=== PATIENT | female | born 2000 | race Two or more races ===

== ENCOUNTER 2021-01-27 16:56 | Emergency (ER) | payer OTHER, SELFPAY ==
--- NOTE | ~2021-01-27 | US_ITS ---
EXAMINATION: US PELVIC AND TRANSVAGINAL US PELVIC OVARIAN DOPPLER CLINICAL INFORMATION: Right lower quadrant pelvic pain. LMP 01/16/2021. COMPARISON: None TECHNIQUE: Ultrasound of the pelvis is performed using both transabdominal and transvaginal transducers along with Doppler. Transvaginal imaging is performed due to inadequate visualization transabdominally. FINDINGS: UTERUS: The uterus is anteverted and measures 7.5 x 3.4 x 4.8 cm. The double wall endometrial thickness is 12 mm. The uterus is smooth in contour and has normal myometrial echogenicity. No visible fibroid. ADNEXA: Both ovaries are visualized. There is normal color flow to the right and left ovary. There is no ovarian torsion. There is sinw-gn-auizteia pelvic free fluid. Right ovary measures 3.4 x 2.8 x 3.2 cm for a volume of 16 mL. There are complex right ovarian cysts measuring 1.9 x 1.4 x 1.1 cm and 1.6 x 1.0 x 1.8 cm. Left ovary measures 2.2 x 2.7 x 2.8 cm for a volume of 8.7 mL. US/US pelvic and transvaginal IMPRESSION: 1. Complex right ovarian cysts measuring 1.9 and 1.8 cm. 2. Rbrz-mr-bltbjxde pelvic free fluid.
--- NOTE | ~2021-01-27 | US_ITS ---
EXAMINATION: US PELVIC AND TRANSVAGINAL US PELVIC OVARIAN DOPPLER CLINICAL INFORMATION: Right lower quadrant pelvic pain. LMP 01/16/2021. COMPARISON: None TECHNIQUE: Ultrasound of the pelvis is performed using both transabdominal and transvaginal transducers along with Doppler. Transvaginal imaging is performed due to inadequate visualization transabdominally. FINDINGS: UTERUS: The uterus is anteverted and measures 7.5 x 3.4 x 4.8 cm. The double wall endometrial thickness is 12 mm. The uterus is smooth in contour and has normal myometrial echogenicity. No visible fibroid. ADNEXA: Both ovaries are visualized. There is normal color flow to the right and left ovary. There is no ovarian torsion. There is waro-ny-ppkcmgxz pelvic free fluid. Right ovary measures 3.4 x 2.8 x 3.2 cm for a volume of 16 mL. There are complex right ovarian cysts measuring 1.9 x 1.4 x 1.1 cm and 1.6 x 1.0 x 1.8 cm. Left ovary measures 2.2 x 2.7 x 2.8 cm for a volume of 8.7 mL. US/US pelvic ovarian doppler IMPRESSION: 1. Complex right ovarian cysts measuring 1.9 and 1.8 cm. 2. Ixvj-we-tkmjsmwx pelvic free fluid.
--- NOTE | ~2021-01-27 | CT_ITS ---
EXAMINATION: CT ABDOMEN AND PELVIS WITH CONTRAST CLINICAL INFORMATION: Right lower quadrant pain COMPARISON: Pelvic ultrasound from earlier today TECHNIQUE: Multidetector volumetric images were obtained from the superior aspect of the liver through the pubic symphysis following administration 85 mL of Omnipaque 350 intravenous contrast. Sagittal and coronal reformatted images were obtained on the technologist's workstation. Oral contrast: No This CT examination was performed using dose optimization techniques as appropriate, variously including the following: *Automated exposure control *Adjustment of mA and/or kV according to patient size (this includes techniques or standardized protocols for targeted exams where dose is matched to indication/reason for exam; i.e. extremities or head) *Use of iterative reconstruction technique DLP: 317 mGy-cm FINDINGS: LUNG BASES: The visualized lung bases are unremarkable. LIVER, GALLBLADDER, AND BILIARY TREE: The liver is normal in size, shape, and attenuation. No focal hepatic lesion or biliary ductal dilatation is present. The gallbladder is unremarkable with no evidence of radiopaque gallstones, gallbladder wall thickening, or obvious pericholecystic inflammatory changes. PANCREAS: Unremarkable. SPLEEN: Unremarkable. ADRENAL GLANDS: Unremarkable. KIDNEYS AND URETERS: Bilateral nephrograms are symmetric. No hydronephrosis or obstructing calculus identified. BLADDER: Unremarkable. GASTROINTESTINAL TRACT: No evidence of bowel obstruction or significant wall thickening. The appendix appears nondilated. No free air is seen. ABDOMINAL WALL: No significant hernia is appreciated. LYMPH NODES: Normal. VASCULAR: Unremarkable. PELVIC VISCERA: Small right ovarian cysts are better demonstrated on recent ultrasound. Small amount of pelvic free fluid is noted. OSSEOUS STRUCTURES: Unremarkable. CT/CT abdomen pelvis w con IMPRESSION: Small amount of nonspecific pelvic free fluid again noted. No additional acute findings identified. Normal-appearing appendix. Fleischner guidelines were followed.
[2021-01-27 17:09] VITALS: BP 111/55; PULSE 72; RESP 18; TEMP 36.8; O2SAT 100; BMI 20.7
--- NOTE | 2021-01-27 19:37 | PC.NURSE ---
Pt's labs obtained, sent for processing. When pt called into triage for labs, pt was eating a donut. Pt does report persistent RLQ pain.
[2021-01-27 19:46] LABS: MANUAL DIFF FLAG NO
[2021-01-27 19:47] LABS: Basophils Percent Auto 0.3 % (0-2); Eosinophils Absolute Auto 0.1 X10*3/uL (0.0-0.4); Eosinophils Percent Auto 1.3 % (0-4); Hematocrit 38.6 % (37.0-47.0); Hemoglobin 12.7 g/dl (12.0-16.0); Imm Gran Abs Auto 0.01 X10*3/uL (0.00-0.03); Imm Gran Pct Auto 0.1 % (0.0-0.4); Lymphocytes Percent Auto 25.1 % (20-40); Mean Corpuscular HGB Conc 32.9 g/dl (31.0-35.0); Mean Corpuscular Hemoglobin 30.5 pg (27.0-33.0); Mean Corpuscular Volume 92.8 fL (80.0-98.0); Monocytes Absolute Auto 0.4 X10*3/uL (0.1-1.2); Monocytes Percent Auto 5.3 % (2-11); Neutrophils Absolute Auto 5.4 x10*3/uL (2.0-8.3); Neutrophils Percent Auto 67.9 % (45-73); Platelet Count 317 X10*3/uL (160-400); Red Blood Count 4.16 X10*6/uL (4.20-5.50); Red Cell Distribution Width 11.9 % (11.0-16.0); White Blood Count 7.9 X10*3/uL (4.8-10.8)
[2021-01-27 20:03] LABS: Appearance Urine CLEAR; Color Urine YELLOW; Glucose Urine UA NEG (NEG); Leukocyte Esterase Urine NEG (NEG); Nitrite Urine NEG (NEG); PH 6.5 (5.0-8.0); Specific Gravity - Urine 1.025 (1.005-1.025); Urine Blood NEG (NEG); Urine Ketones NEG (NEG); Urine Protein NEG (NEG-TRACE)
[2021-01-27 20:03] LABS: Alanine Aminotransferase 9 U/L (0-31); Albumin Level 4.2 g/dL (3.5-5.0); Alkaline Phosphatase 63 U/L (39-117); Anion Gap 12 (12-20); Aspartate Amino Transferase 16 U/L (5-31); Bilirubin Total 0.4 mg/dL (0.0-1.0); Blood Urea Nitrogen 15 mg/dL (9-16); Calcium 9.9 mg/dL (8.4-10.2); Carbon Dioxide 24 mmol/L (22-29); Chloride 106 mmol/L (96-108); Creatinine Clr Calc Pharmacy 99.1; Estimated Glomerular Filt Rate > 60; Glucose Random 81 mg/dL (60-115); Potassium 4.1 mmol/L (3.3-5.1); Sodium 138 mmol/L (135-145); Total Protein 7.4 g/dL (6.5-8.0)
[2021-01-27 20:05] VITALS: BP 116/57; PULSE 66; RESP 16; TEMP 37.2; O2SAT 100
[2021-01-27 20:05] LABS: UPreg QC Valid YES; Urine Pregnancy NEGATIVE (NEGATIVE)
--- NOTE | 2021-01-27 22:07 | ED_ITS ---
HPI - Abdominal Pain General Chief Complaint: Abdominal Pain Stated Complaint: lower rt side abd pain Time Seen by Provider: 01/27/21 21:26 Source: patient and family Mode of arrival: ambulatory History of Present Illness HPI narrative: 20-year-old female presents with right lower quadrant pain/pelvic pain since last night with associated nausea but otherwise denies any fever, chills, diarrhea, urinary pain/burning/frequency. Patient states that she is sexually active but last encounter was approximately 2 months ago and she denies any vaginal discharge or burning on urination. Related Data Allergies Allergy/AdvReac Type Severity Reaction Status Date / Time No Known Allergies Allergy Unverified 01/27/21 21:26 Review of Systems Review of Systems Pertinent positives and negatives as stated in HPI 10 point review of systems is otherwise negative. Physical Exam Vital Signs: Vital Signs: Last Vital Signs Temp 99.0 F 01/27/21 23:50 Pulse 67 01/27/21 23:50 Resp 16 01/27/21 23:50 BP 129/75 01/27/21 23:50 Pulse Ox 100 01/27/21 20:05 BMI result Body Mass Index 20.7 VITAL SIGNS: Reviewed. GENERAL: Well developed, well nourished, in no acute distress. HEAD: Normocephalic/atraumatic EYES: PERRLA, EOMI LUNGS: Normal breath sounds. No adventitious sounds or accessory muscle use. SpO2<100> CARDIOVASCULAR: Regular rate and rhythm without noted murmurs ABDOMEN: Soft, mild tenderness on palpation across right lower quadrant and suprapubic without rebound, non-distended with bowel sounds. NEUROLOGIC: Alert and oriented x 4. Strength and sensation to light touch were grossly intact x 4. Course Course Course Narrative: 20-year-old female with history and clinical presentation suggestive of possible ectopic, appendicitis, UTI, ovarian torsion, ovarian cyst. Review of all investigations although laboratory workup is without acute findings ultrasound with Dopplers negative for ovarian torsion but noted mild to moderate pelvic free fluid and will follow up with the CT scan. Review of all investigations in its entirety negative for evidence of acute appendicitis, PID, ectopic and urinalysis is negative. There is a noted complex ovarian cyst on the right side with mild amount of pelvic free fluid. All results were discussed with patient at bedside and she was instructed to follow-up with her primary care provider intake [id number] analgesics for pain. MDM - Abdominal Pain Lab Data Result diagrams: 01/27/21 19:36 01/27/21 19:36 Labs: Lab Results 01/27/21 01/27/21 01/27/21 Range/Units 19:36 19:36 19:55 WBC 7.9 (4.8-10.8) X10*3/uL RBC 4.16 L (4.20-5.50) X10*6/uL Hgb 12.7 (12.0-16.0) g/dl Hct 38.6 (37.0-47.0) % MCV 92.8 (80.0-98.0) fL MCH 30.5 (27.0-33.0) pg MCHC 32.9 (31.0-35.0) g/dl RDW 11.9 (11.0-16.0) % Plt Count 317 (160-400) X10*3/uL MPV 9.0 L (9.4-12.3) fL Immature Gran % (Auto) 0.1 (0.0-0.4) % Neut % (Auto) 67.9 (45-73) % Lymph % (Auto) 25.1 (20-40) % [place] % (Auto) 5.3 (2-11) % Eos % (Auto) 1.3 (0-4) % Baso % (Auto) 0.3 (0-2) % Lymph # (Auto) 2.0 (1.2-4.9) X10*3/uL [place] # (Auto) 0.4 (0.1-1.2) X10*3/uL Eos # (Auto) 0.1 (0.0-0.4) X10*3/uL Baso # (Auto) 0.0 (0.0-0.2) X10*3/uL Abs Immat Gran (auto) 0.01 (0.00-0.03) X10*3/uL Absolute Neuts (auto) 5.4 (2.0-8.3) x10*3/uL Absolute Nucleated RBC 0.000 (0.0-0.012) X10*3/uL Nucleated RBC % (auto) 0.0 (0.0-0.2) /100WBC Sodium 138 (135-145) mmol/L Potassium 4.1 (3.3-5.1) mmol/L Chloride 106 (96-108) mmol/L Carbon Dioxide 24 (22-29) mmol/L Anion Gap 12 (12-20) BUN 15 (9-16) mg/dL Creatinine 0.81 (0.5-1.4) mg/dL Estim Creat Clear Calc 99.1 Estimated GFR > 60 Random Glucose 81 (60-115) mg/dL Calcium 9.9 (8.4-10.2) mg/dL Total Bilirubin 0.4 (0.0-1.0) mg/dL AST 16 (5-31) U/L ALT 9 (0-31) U/L Alkaline Phosphatase 63 (39-117) U/L Total Protein 7.4 (6.5-8.0) g/dL Albumin 4.2 (3.5-5.0) g/dL Urine Color YELLOW Urine Appearance CLEAR Urine pH 6.5 (5.0-8.0) Ur Specific [place] 1.025 (1.005-1.025) Urine Protein NEG (NEG-TRACE) MG/DL Urine Glucose (UA) NEG (NEG) MG/DL Urine Ketones NEG (NEG) MG/DL Urine Blood NEG (NEG) Urine Nitrite NEG (NEG) Ur Leukocyte Esterase NEG (NEG) Urine Test (NEGATIVE) 01/27/21 Range/Units 19:55 WBC (4.8-10.8) X10*3/uL RBC (4.20-5.50) X10*6/uL Hgb (12.0-16.0) g/dl Hct (37.0-47.0) % MCV (80.0-98.0) fL MCH (27.0-33.0) pg MCHC (31.0-35.0) g/dl RDW (11.0-16.0) % Plt Count (160-400) X10*3/uL MPV (9.4-12.3) fL Immature Gran % (Auto) (0.0-0.4) % Neut % (Auto) (45-73) % Lymph % (Auto) (20-40) % [place] % (Auto) (2-11) % Eos % (Auto) (0-4) % Baso % (Auto) (0-2) % Lymph # (Auto) (1.2-4.9) X10*3/uL [place] # (Auto) (0.1-1.2) X10*3/uL Eos # (Auto) (0.0-0.4) X10*3/uL Baso # (Auto) (0.0-0.2) X10*3/uL Abs Immat Gran (auto) (0.00-0.03) X10*3/uL Absolute Neuts (auto) (2.0-8.3) x10*3/uL Absolute Nucleated RBC (0.0-0.012) X10*3/uL Nucleated RBC % (auto) (0.0-0.2) /100WBC Sodium (135-145) mmol/L Potassium (3.3-5.1) mmol/L Chloride (96-108) mmol/L Carbon Dioxide (22-29) mmol/L Anion Gap (12-20) BUN (9-16) mg/dL Creatinine (0.5-1.4) mg/dL Estim Creat Clear Calc Estimated GFR Random Glucose (60-115) mg/dL Calcium (8.4-10.2) mg/dL Total Bilirubin (0.0-1.0) mg/dL AST (5-31) U/L ALT (0-31) U/L Alkaline Phosphatase (39-117) U/L Total Protein (6.5-8.0) g/dL Albumin (3.5-5.0) g/dL Urine Color Urine Appearance Urine pH (5.0-8.0) Ur Specific [place] (1.005-1.025) Urine Protein (NEG-TRACE) MG/DL Urine Glucose (UA) (NEG) MG/DL Urine Ketones (NEG) MG/DL Urine Blood (NEG) Urine Nitrite (NEG) Ur Leukocyte Esterase (NEG) Urine Test NEGATIVE (NEGATIVE) Discharge Plan Discharge Clinical Impression: Abdominal discomfort, Free fluid in pelvis Patient Disposition: Home, Self-Care Instructions: Abdominal Pain (ED) Additional Instructions: 1. Recommend taking [id number] Tylenol/ibuprofen as needed for abdominal discomfort. 2. Follow-up with your primary care provider for re-evaluation in the next 2-3 days. Return to the ER for worsening symptoms. [facility] Past Medical History Source: nursing notes reviewed Medical History No known health problems Social History Social History Advance Directives: No Advance Directives Information Provided: No
[2021-01-27] MEDS: iohexoL 350 MG/ML 100 ML INFUS..BTL 85 ML IV (23:46)
[2021-01-27 23:50] VITALS: BP 129/75; PULSE 67; RESP 16; TEMP 37.2
[2021-01-28 00:31] LABS: COVID-19 Test Negative (Negative); IDNOW Serial# 9DD0AD1C
== END 2021-01-28 00:28 | disposition home or self-care (01) ==
PROVIDERS: Emergency Provider Student in an Organized Health Care Education/Training Program
DX: R10.9 Unspecified abdominal pain (principal); R18.8 Other ascites; Z20.822 Contact with and (suspected) exposure to COVID-19
CPT/HCPCS: 36415; 74177; 76830; 76856; 80053; 81003; 81025; 85025; 87635; 93975; 99284; Q9967

== ENCOUNTER 2021-08-24 12:03 | Emergency (ER) | payer OTHER, SELFPAY ==
--- NOTE | ~2021-08-24 | US_ITS ---
EXAMINATION: US PELVIS CLINICAL INFORMATION: Left adnexal pain and bleeding COMPARISON: None TECHNIQUE: Ultrasound of the pelvis is performed using both transabdominal and transvaginal transducers along with Doppler. Transvaginal imaging is performed due to inadequate visualization transabdominally. FINDINGS: Uterus: The uterus is anteverted and measures 7.4 cm in length and 3.3 mL in AP and 4.9 cm in dimension. The double wall endometrial thickness is 7 mm. The uterus is smooth in contour and has normal myometrial echogenicity. No visible fibroid. Adnexa: Both ovaries are visualized. There is normal color flow to the adnexa. There is no ovarian torsion. There is no pelvic ascites or fluid collection. Right ovary measures 2.9 x 1.5 x 2.9 cm and volume 6.6 mL. No focal lesion seen. Left ovary measures 3.5 x 2.4 x 2.7 cm and volume 11.9 mL. A small corpus luteal cyst is seen measuring 1.8 x 1.3 x 1.3 cm. cm. US/US pelvic ovarian doppler IMPRESSION: Unremarkable uterus and cervix. Small corpus luteal cyst left ovary.
--- NOTE | ~2021-08-24 | US_ITS ---
EXAMINATION: US PELVIS CLINICAL INFORMATION: Left adnexal pain and bleeding COMPARISON: None TECHNIQUE: Ultrasound of the pelvis is performed using both transabdominal and transvaginal transducers along with Doppler. Transvaginal imaging is performed due to inadequate visualization transabdominally. FINDINGS: Uterus: The uterus is anteverted and measures 7.4 cm in length and 3.3 mL in AP and 4.9 cm in dimension. The double wall endometrial thickness is 7 mm. The uterus is smooth in contour and has normal myometrial echogenicity. No visible fibroid. Adnexa: Both ovaries are visualized. There is normal color flow to the adnexa. There is no ovarian torsion. There is no pelvic ascites or fluid collection. Right ovary measures 2.9 x 1.5 x 2.9 cm and volume 6.6 mL. No focal lesion seen. Left ovary measures 3.5 x 2.4 x 2.7 cm and volume 11.9 mL. A small corpus luteal cyst is seen measuring 1.8 x 1.3 x 1.3 cm. cm. US/US pelvic and transvaginal IMPRESSION: Unremarkable uterus and cervix. Small corpus luteal cyst left ovary.
[2021-08-24 12:09] VITALS: BP 115/90; PULSE 76; RESP 16; TEMP 36.8; O2SAT 99; BMI 19.1
[2021-08-24 13:02] LABS: Appearance Urine CLEAR; Color Urine YELLOW; Glucose Urine UA NEG (NEG); Leukocyte Esterase Urine NEG (NEG); Nitrite Urine NEG (NEG); Specific Gravity - Urine 1.025 (1.005-1.025); UACC Culture Trigger NO; Urine Blood 2+ (NEG); Urine Ketones NEG (NEG); Urine Protein NEG (NEG-TRACE)
[2021-08-24 13:06] LABS: UPreg QC Valid YES
[2021-08-24 13:07] LABS: Urine Pregnancy NEGATIVE (NEGATIVE)
[2021-08-24 13:10] LABS: Bacteria Urine 3+ /LPF; Squamous Epithelial Cell Urine 2+ /LPF
--- NOTE | 2021-08-24 13:36 | ED_ITS ---
HPI - Female Genitourinary General Chief complaint: Urogenital-Female Stated complaint: lower abdominal and urination pain Time Seen by Provider: 08/24/21 13:06 Source: patient Mode of arrival: ambulatory Limitations: no limitations History of Present Illness HPI Narrative: 21-year-old female here for 5 days of left-sided pelvic pain and dysuria. Patient has had blood on toilet paper when she wipes. She is sexually active, last menstrual period was early last month. Patient states there is pain when she walks. This is similar to the abdominal pain she had in January 2021 when she had ovarian cyst on her right side. The pain is stabbing and constant she states that as a 08/25. Denies vaginal discharge, denies back pain, denies fevers, denies nausea, vomiting, diarrhea. Related Data Previous Rx's Medication Instructions Recorded doxycycline hyclate 100 mg tablet 100 mg PO BID 7 days #14 tabs 08/24/21 phenazopyridine 200 mg tablet 200 mg PO TID 6 doses #6 tabs 08/24/21 (Pyridium) Allergies Allergy/AdvReac Type Severity Reaction Status Date / Time No Known Allergies Allergy Unverified 01/27/21 21:26 Review of Systems Constitutional: Constitutional: Denies body ache(s), Denies chills, Denies fatigue, Denies fever(s), Denies headache(s), Denies malaise and Denies weakness Eyes: Eyes: Denies diplopia ENT: Denies vertigo, Denies dizziness, Denies otalgia, Denies headache(s), Denies mouth pain, Denies post nasal drip, Denies sinus pain, Denies sinus pressure, Denies sore throat and Denies throat swelling Cardiovascular: Cardiovascular: Denies chest pain, Denies syncope, Denies leg edema, Denies lightheadedness, Denies Loss of Consciousness, Denies palpitations and Denies dyspnea Respiratory: Respiratory: Denies chest congestion, Denies cough and Denies dyspnea Gastrointestinal: Gastrointestinal: Denies abdominal pain, Denies hematoche kadeem, Denies constipation, Denies diarrhea, Denies nausea and Denies vomiting Genitourinary: Genitourinary: Denies genital pruritis, Denies genital lesions, Reports dysuria, Reports pelvic pain, Denies flank pain, Denies urinary incontinence, Denies urinary hesitancy, Denies urinary urgency, Denies vaginal discharge, Denies vaginal odor and Denies vaginal pruritus Musculoskeletal: Musculoskeletal: Reports no additional musculoskeletal complaints and Denies back pain Integumentary/Breasts: Skin/Breast: Denies rash Neurologic: Denies confusion, Denies vertigo, Denies dizziness, Denies syncope, Denies headache(s) and Denies weakness Psychiatric: Psychiatric: Denies anxiety, Denies confusion and Denies depression Endocrine: Endocrine: Denies fatigue and Denies palpitations Allergic/Immunologic: Allergic/Immunologic: Denies throat swelling PMFSH Past Medical History Medical History No known health problems Social History Social History Advance Directives: No Advance Directives Information Provided: No Physical Exam Vital Signs: Vital Signs: Last Vital Signs Temp 98.2 F 08/24/21 12:09 Pulse 76 08/24/21 12:09 Resp 16 08/24/21 12:09 BP 115/90 H 08/24/21 12:09 Pulse Ox 99 08/24/21 12:09 O2 Del Method 08/24/21 12:09 BMI result Body Mass Index 19.1 Const: General: No confusion Nutritional Appearance: well nourished Orientation/consciousness: No confusion Limitations: no limitations Eyes: Conjunctivae: conjunctivae normal Pupils: Equal, round and reactive pupils present EOM: EOMs intact bilaterally Neck: Neck: Yes full ROM, Yes no lymphadenopathy and Yes supple Resp: Effort & Inspection: normal respiratory effort and able to speak in complete sentences Auscultation: clear to auscultation bilaterally, no crackles, no rales, no rhonchi and no wheezes Cardio: Rate: regular rate Rhythm: regular rhythm Heart sounds: S1 no rmal heart sound present and S2 normal heart sound present GI: Inspection: Yes normal to inspection Palpation (GI): Soft to palpation, nontender, no guarding and not rigid Percussion: Yes normal to percussion Auscultation: normal bowel sounds : General: Yes no CVA tenderness External Female Exam: normal external appearance and normal appearance of the urethra Speculum Exam - Vagina: normal appearance of the vagina, normal palpation and normal vaginal discharge Speculum Exam - Cervix: normal palpation Bimanual exam- vagina & uterus: normal palpation, normal palpation and no cervical motion tenderness Bimanual Exam- Adnexa, other: tender (mild) on the left Back/Spine/Pelvis: Back: no CVA tenderness Skin: General skin exam: no rashes or lesions noted Neuro: General: No confusion Cranial nerves: Yes Equal, round and reactive pupils present Extrem: General: Yes normal to inspection and Yes full ROM Psych: Appearance: grossly normal Affect: normal affect Attitude: cooperative Thought process: Normal thought process present Course Course Course Narrative: 21-year-old female presents for left-sided pelvic pain and dysuria with some blood on the toilet paper last 5 days. No her merry urgency or frequency. Patient is sexually active. On exam, patient has stable vitals, is afebrile, has a benign abdominal exam and no CVA tenderness On ice cream dispenser exam, patient has mild left-sided adnexal tenderness, no cervical motion tenderness, normal appearing vagina, no abnormal vaginal discharge or bleeding. Gonorrhea and chlamydia swabs were obtained, patient treated with Rocephin and doxycycline prophylactically. Ultrasound only shows small left corpus luteal cyst, otherwise unremarkable ultrasound. No torsion, normal blood flow to both ovaries, no fibroid, no thickened endometrium Urine shows no leukocyte esterase, no nitrates, shows some bacteria but also epithelial cells. Urine shows blood and red blood cells. Discussed case with Dr Espino, who suggested sending urine for culture, treating with pyridium, and having pt f/u with PCP for hematuria. Discussed utility of CT scan; patient is feeling better after Tylenol. Discussed that patient has no abdominal pain, no CVA tenderness, most likely not kidney stone. Counseled patient that CT scan has radiation and we should only do it if necessary, counseled patient she must return if she has worsening pain, nausea, vomiting, fevers or new symptoms. Patient verbalized understanding Sent a prescription for doxycycline, counseled patient to call hospital tomorrow if CTNG returns negative, she can stop the doxycycline Reevaluation(s) Reevaluation #1: US/US pelvic and transvaginal IMPRESSION: Unremarkable uterus and cervix. Small corpus luteal cyst left ovary. MDM - Female Genitourinary Lab Data Result diagrams: 08/24/21 13:46 08/24/21 13:46 Labs: Lab Results 08/24/21 08/24/21 08/24/21 Range/Units 12:53 12:53 13:46 WBC 4.9 (4.8-10.8) X10*3/uL RBC 3.94 L (4.20-5.50) X10*6/uL Hgb 12.0 (12.0-16.0) g/dl Hct 36.1 L (37.0-47.0) % MCV 91.6 (80.0-98.0) fL MCH 30.5 (27.0-33.0) pg MCHC 33.2 (31.0-35.0) g/dl RDW 12.6 (11.0-16.0) % Plt Count 289 (160-400) X10*3/uL MPV 8.8 L (9.4-12.3) fL Absolute Nucleated RBC 0.000 (0.0-0.012) X10*3/uL Nucleated RBC % (auto) 0.0 (0.0-0.2) /100WBC Sodium (135-145) mmol/L Potassium (3.3-5.1) mmol/L Chloride (96-108) mmol/L Carbon Dioxide (22-29) mmol/L Anion Gap (12-20) BUN (9-16) mg/dL Creatinine (0.5-1.4) mg/dL Estim Creat Clear Calc Estimated GFR Random Glucose (60-115) mg/dL Calcium (8.4-10.2) mg/dL Urine Color YELLOW Urine Appearance CLEAR Urine pH 6.0 (5.0-8.0) Ur Specific [place] 1.025 (1.005-1.025) Urine Protein NEG (NEG-TRACE) MG/DL Urine Glucose (UA) NEG (NEG) MG/DL Urine Ketones NEG (NEG) MG/DL Urine Blood 2+ H (NEG) Urine Nitrite NEG (NEG) Ur Leukocyte Esterase NEG (NEG) Urine RBC 10-14 H (0) /HPF Urine WBC 1-4 (0-4) /HPF Ur Squamous Epith Cells 2+ /LPF Urine Bacteria 3+ /LPF Urine Test NEGATIVE (NEGATIVE) Chlam trachomat DNA PCR (Not Detect.) N.gonorrhoeae DNA (PCR) (Not Detect.) 07/09/22 07/09/22 Range/Units 13:46 14:09 WBC (4.8-10.8) X10*3/uL RBC (4.20-5.50) X10*6/uL Hgb (12.0-16.0) g/dl Hct (37.0-47.0) % MCV (80.0-98.0) fL MCH (27.0-33.0) pg MCHC (31.0-35.0) g/dl RDW (11.0-16.0) % Plt Count (160-400) X10*3/uL MPV (9.4-12.3) fL Absolute Nucleated RBC (0.0-0.012) X10*3/uL Nucleated RBC % (auto) (0.0-0.2) /100WBC Sodium 138 (135-145) mmol/L Potassium 4.8 (3.3-5.1) mmol/L Chloride 109 H (96-108) mmol/L Carbon Dioxide 24 (22-29) mmol/L Anion Gap 10 L (12-20) BUN 15 (9-16) mg/dL Creatinine 0.83 (0.5-1.4) mg/dL Estim Creat Clear Calc 88.2 Estimated GFR > 60 Random Glucose 84 (60-115) mg/dL Calcium 9.7 (8.4-10.2) mg/dL Urine Color Urine Appearance Urine pH (5.0-8.0) Ur Specific [place] (1.005-1.025) Urine Protein (NEG-TRACE) MG/DL Urine Glucose (UA) (NEG) MG/DL Urine Ketones (NEG) MG/DL Urine Blood (NEG) Urine Nitrite (NEG) Ur Leukocyte Esterase (NEG) Urine RBC (0) /HPF Urine WBC (0-4) /HPF Ur Squamous Epith Cells /LPF Urine Bacteria /LPF Urine Test (NEGATIVE) Chlam trachomat DNA PCR NOT DETECTED (Not Detect.) N.gonorrhoeae DNA (PCR) NOT DETECTED (Not Detect.) Discharge Plan Discharge Clinical Impression: Concern about STD in female without diagnosis, Hematuria Patient Disposition: Home, Self-Care Instructions: Safe Sex Practices (ED), Hematuria (ED) Additional Instructions: Her urine is noninfected, but does have blood in it, please call your primary care provider on Thursday for follow-up appointment. You may take Pyridium which will turn your urine orange for the next 2 days for the pain when you urinate I have sent your urine for culture, but have not treated you for urinary tract infection. If urine culture comes back positive, we will call you and put you on antibiotics for UTI I did however send antibiotics to treat STDs, these are different antibiotics and the ones that would treat UTI. You may call the hospital tomorrow afternoon for the results of your STD test, if it is negative he may stop the doxycycline. As we discussed, a CT scan is a fair amount of radiation. We did not do one today. However, if you have worsening symptoms, fevers, continuing pain that does not resolve, nausea, vomiting, back pain, any of the above symptoms are new or concerning symptoms, please return to emergency room Prescriptions: New phenazopyridine [Pyridium] 200 mg tablet 200 mg PO TID Qty: 6 0RF doxycycline hyclate 100 mg tablet 100 mg PO BID 7 Days Qty: 14 0RF Interventions: ED Discharge Assessment Last Done: 08/24/21 15:52 Discharge Date/Time: 08/24/21 15:53
[2021-08-24 13:53] LABS: Hematocrit 36.1 % (37.0-47.0); Mean Corpuscular HGB Conc 33.2 g/dl (31.0-35.0); Mean Corpuscular Hemoglobin 30.5 pg (27.0-33.0); Mean Corpuscular Volume 91.6 fL (80.0-98.0); Mean Platelet Volume 8.8 fL (9.4-12.3); Platelet Count 289 X10*3/uL (160-400); Red Blood Count 3.94 X10*6/uL (4.20-5.50); Red Cell Distribution Width 12.6 % (11.0-16.0); White Blood Count 4.9 X10*3/uL (4.8-10.8)
[2021-08-24 14:09] LABS: Anion Gap 10 (12-20); Blood Urea Nitrogen 15 mg/dL (9-16); Calcium 9.7 mg/dL (8.4-10.2); Carbon Dioxide 24 mmol/L (22-29); Chloride 109 mmol/L (96-108); Creatinine Clr Calc Pharmacy 88.2; Estimated Glomerular Filt Rate > 60; Glucose Random 84 mg/dL (60-115); Potassium 4.8 mmol/L (3.3-5.1); Sodium 138 mmol/L (135-145)
[2021-08-24] MEDS: cefTRIAXone sodium 500 MG, Lidocaine HCl 1 % MPF 1 ML IM (14:11)
[2021-08-24 15:59] LABS: CT PCR NOT DETECTED (Not Detect.); NG PCR NOT DETECTED (Not Detect.)
== END 2021-08-24 15:53 | disposition home or self-care (01) ==
PROVIDERS: Physician Assistant; Emergency Provider Emergency Medicine
DX: R31.9 Hematuria, unspecified (principal); Z20.2 Contact with and (suspected) exposure to infections with a predominantly sexual mode of transmission; N83.12 Corpus luteum cyst of left ovary; R10.32 Left lower quadrant pain
CPT/HCPCS: 36415; 76830; 76856; 80048; 81001; 81003; 81025; 85027; 87086; 87088; 87186; 87491; 87591; 93975; 96372; 99282; 99284; J0696

== ENCOUNTER 2022-06-11 14:16 | Emergency (ER) | payer OTHER, SELFPAY ==
[2022-06-11 15:14] VITALS: BP 114/65; PULSE 94; RESP 18; TEMP 36.5; O2SAT 99; BMI 19.1
--- NOTE | 2022-06-11 15:14 | ED.GENADULT ---
HPI - General Adult General Chief complaint: Abdominal Pain <AUSTIN Parikh Last Filed: 06/11/22 15:17> Stated complaint: abd pain <AUSTIN Parikh - Last Filed: 06/11/22 15:17> Time Seen by Provider: 06/11/22 17:08 <AUSTIN Parikh - Last Filed: 06/11/22 15:17> Source: patient <AUSTIN Salguero Last Filed: 06/13/22 06:57> Mode of arrival: ambulatory <AUSTIN Salguero Last Filed: 06/13/22 06:57> Limitations: no limitations <AUSTIN Salguero Last Filed: 06/13/22 06:57> History of Present Illness HPI narrative: Patient is a 22 year old assigned female at with a history of ovarian cysts presenting to the emergency department today with a migraine and intermittent lower abdominal pain. Patient states that over the last 3 days she has had a migraine and intermittent lower abdominal pain. Patient states that the abdominal pain is consistent with what she normally has when her ovarian cysts flare. Patient denies any dizziness, lightheadedness, vomiting, fever, chills, blurry vision, double vision, loss of vision, chest pain, difficulty breathing, shortness of breath, back pain, night sweats, pain with urination, increased urinary frequency, increased urinary urgency, blood in her urine or stool, syncope or a near syncopal episode, recent trauma or falls, bowel incontinence, bladder incontinence, bowel retention, bladder retention, or any other complaints at this time. <AUSTIN Salguero - Last Filed: 06/13/22 06:57> Onset (ago): day(s) (3) <AUSTIN Salguero Last Filed: 06/13/22 06:57> Severity: mild <AUSTIN Salguero Last Filed: 06/13/22 06:57> Severity scale (1-10): 2 <AUSTIN Salguero Last Filed: 06/13/22 06:57> Relieving factors: none <AUSTIN Salguero Last Filed: 06/13/22 06:57> Exacerbating factors: none <AUSTIN Salguero Last Filed: 06/13/22 06:57> Associated symptoms: headaches and nausea/vomiting <AUSTIN Salguero Last Filed: 06/13/22 06:57> Treatments prior to arrival: none <AUSTIN Salguero Last Filed: 06/13/22 06:57> Related Data Home medications: Previous Rx's Medication Instructions Recorded doxycycline hyclate 100 mg tablet 100 mg PO BID 7 days #14 tabs 08/24/21 phenazopyridine 200 mg tablet 200 mg PO TID 6 doses #6 tabs 08/24/21 (Pyridium) nitrofurantoin 100 mg PO Q12H 3 days #6 caps 09/05/21 monohydrate/macrocrystals 100 mg capsule (Macrobid) ondansetron 4 mg disintegrating 4 mg PO Q8H 3 days #9 tabs 06/11/22 tablet <AUSTIN Parikh Last Filed: 06/11/22 15:17> Allergies/adverse reactions: Allergies Allergy/AdvReac Type Severity Reaction Status Date / Time No Known Allergies Allergy Verified 06/11/22 15:14 <AUSTIN Parikh Last Filed: 06/11/22 15:17> Review of Systems Constitutional: Constitutional: Reports no additional constitutional complaints, Denies chills, Denies fever(s), Reports headache(s) and Denies night sweats <AUSTIN Salguero Last Filed: 06/13/22 06:57> Eyes: Eyes: Reports no additional eye complaints, Denies blurry vision, Denies change in vision, Denies diplopia, Denies eye discharge, Denies loss of vision and Denies eye pain <AUSTIN Salguero Last Filed: 06/13/22 06:57> ENT: Denies dizziness and Reports headache(s) <AUSTIN Salguero Last Filed: 06/13/22 06:57> Cardiovascular: Cardiovascular: Reports no additional cardiovascular complaints, Denies chest pain, Denies lightheadedness, Denies Loss of Consciousness and Denies dyspnea <AUSTIN Salguero Last Filed: 06/13/22 06:57> Respiratory: Respiratory: Reports no additional respiratory complaints and Denies dyspnea <AUSTIN Salguero Last Filed: 06/13/22 06:57> Gastrointestinal: Gastrointestinal: Reports no additional gastrointestinal complaints, Reports abdominal pain, Denies melena, Denies hematochezia, Denies change in bowel habits, Denies change in stool character, Reports nausea and Denies vomiting <AUSTIN Salguero - Last Filed: 06/13/22 06:57> Genitourinary: Genitourinary: Denies hematuria, Denies urinary frequency, Denies dysuria, Denies urinary incontinence, Denies urinary hesitancy and Denies urinary urgency <AUSTIN Salguero - Last Filed: 06/13/22 06:57> Musculoskeletal: Musculoskeletal: Reports no additional musculoskeletal complaints, Denies numbness and Denies tingling <AUSTIN Salguero - Last Filed: 06/13/22 06:57> Neurologic: Denies dizziness, Reports headache(s), Denies loss of vision, Denies numbness and Denies tingling <AUSTIN Salguero - Last Filed: 06/13/22 06:57> Psychiatric: Psychiatric: Reports no additional psychiatric complaints <AUSTIN Salguero - Last Filed: 06/13/22 06:57> Endocrine: Endocrine: Reports no additional endocrine complaints <AUSTIN Salguero - Last Filed: 06/13/22 06:57> Hematologic/Lymphatic: Hematologic/Lymphatic: Reports no additional hematologic/lymphatic complaints <AUSTIN Salguero - Last Filed: 06/13/22 06:57> Allergic/Immunologic: Allergic/Immunologic: Reports no additional allergic/immunologic complaints <AUSTIN Salguero - Last Filed: 06/13/22 06:57> [facility] Past Medical History Attestation statement: The following information was validated with the patient. <AUSTIN Salguero - Last Filed: 06/13/22 06:57> Source: old records reviewed and nursing notes reviewed <AUSTIN Salguero - Last Filed: 06/13/22 06:57> Medical History: Medical History No known health problems <AUSTIN Parikh - Last Filed: 06/11/22 15:17> Social History Social History: Social History Advance Directives: No Advance Directives Information Provided: No <AUSTIN Parikh Last Filed: 06/11/22 15:17> Physical Exam ED Vital Signs: Vital Signs - 24 hr 06/11/22 15:14 Temperature 97.7 F Pulse Rate 94 Respiratory Rate 18 Blood Pressure 114/65 Pulse Oximetry 99 Oxygen Delivery Method Room Air BMI result Body Mass Index 19.1 <AUSTIN Parikh - Last Filed: 06/11/22 15:17> Vital Signs - 24 hr 06/11/22 15:14 Temperature 97.7 F Pulse Rate 94 Respiratory Rate 18 Blood Pressure 114/65 Pulse Oximetry 99 Oxygen Delivery Method Room Air BMI result Body Mass Index 19.1 <AUSTIN Salguero Last Filed: 06/13/22 06:57> Const General: cooperative, no acute distress, alert and awake <AUSTIN Salguero Last Filed: 06/13/22 06:57> Nutritional Appearance: well nourished <AUSTIN Salguero Last Filed: 06/13/22 06:57> Orientation/consciousness: patient oriented x3 <AUSTIN Salguero Last Filed: 06/13/22 06:57> Limitations: no limitations <AUSTIN Salguero Last Filed: 06/13/22 06:57> HENMT Head: Yes normal to inspection and Yes atraumatic <AUSTIN Salguero Last Filed: 06/13/22 06:57> Ears: hearing grossly normal bilaterally and external ears normal <AUSTIN Salguero Last Filed: 06/13/22 06:57> General nose exam: Normal external nose present, no nasal discharge noted and no epistaxis <AUSTIN Salguero Last Filed: 06/13/22 06:57> Face and sinus: Yes normal facial exam, No abrasion and No laceration <AUSTIN Salguero Last Filed: 06/13/22 06:57> Mouth: Normal oral and palatal mucosa present, no drooling and no muffled voice <AUSTIN Salguero Last Filed: 06/13/22 06:57> Eyes General: appearance normal, both eyes and all related structures <AUSTIN Salguero Last Filed: 06/13/22 06:57> Periorbital: periorbital findings normal <Adore Nguyen PA - Last Filed: 06/13/22 06:57> Eyelids: Yes eyelids normal <Adore Nguyen PA - Last Filed: 06/13/22 06:57> Conjunctivae: conjunctivae normal <Adore Nguyen PA - Last Filed: 06/13/22 06:57> Pupils: Equal, round and reactive pupils present <Adore Nguyen PA - Last Filed: 06/13/22 06:57> EOM: EOMs intact bilaterally <Adore Nguyen PA - Last Filed: 06/13/22 06:57> Neck Neck: Yes normal visual inspection, Yes full ROM and Yes no lymphadenopathy <Adore Nguyen PA - Last Filed: 06/13/22 06:57> Chest Chest palpation & inspection: normal inspection of the chest <Adore Nguyen ND - Last Filed: 06/13/22 06:57> Resp Effort & Inspection: normal respiratory effort and able to speak in complete sentences <Adore Nguyen PA - Last Filed: 06/13/22 06:57> Auscultation: clear to auscultation bilaterally <Adore Nguyen ND - Last Filed: 06/13/22 06:57> GI Inspection: Yes normal to inspection <Adore Nguyen ND - Last Filed: 06/13/22 06:57> Palpation (GI): Soft to palpation, not firm, nontender and no guarding <Adore Nguyen ND - Last Filed: 06/13/22 06:57> Neuro General: patient oriented x3 and moves all extremities <Adore Nguyen PA - Last Filed: 06/13/22 06:57> Cranial nerves: Yes Equal, round and reactive pupils present <Adore Nguyen PA - Last Filed: 06/13/22 06:57> Cognition (Neuro): normal cognition <Adore Nguyen PA - Last Filed: 06/13/22 06:57> Motor exam (neuro): 5/5 motor strength present throughout <Adore Nguyen PA - Last Filed: 06/13/22 06:57> Sensory Exam: Normal double simultaneous stimulation for sensation <AUSTIN Salguero - Last Filed: 06/13/22 06:57> Coordination: [id number] test normal <AUSITN Salguero - Last Filed: 06/13/22 06:57> Extrem General: Yes normal to inspection, Yes full ROM and Yes capillary refill normal <AUSTIN Salguero - Last Filed: 06/13/22 06:57> Psych Appearance: grossly normal <AUSTIN Slaguero - Last Filed: 06/13/22 06:57> Mental Status: mental status grossly normal <AUSTIN Salguero - Last Filed: 06/13/22 06:57> Affect: normal affect <AUSTIN Salguero - Last Filed: 06/13/22 06:57> Attitude: cooperative <AUSTIN Salguero - Last Filed: 06/13/22 06:57> Thought process: Normal thought process present <AUSTIN Salguero - Last Filed: 06/13/22 06:57> Thought content: Normal thought content present <AUSTIN Salguero - Last Filed: 06/13/22 06:57> Insight: Good insight present (Psych) <AUSTIN Salguero - Last Filed: 06/13/22 06:57> Course Course Course Narrative: This is an RME: Additional HPI, ROS, PE not included below will be deferred to primary provider. 22 year old female presents to ED with migraine and suprapubic abdominal pain that began today. Patient took tylenol for her migraine, never experienced this before/ Patient reports she is not on control. Positive nausea, denies vomiting or diarrhea PE: NIHSS 0 Plan: labs, UA <Mert Toscano PA - Last Filed: 06/11/22 15:17> Medications Administered Discontinued Medications Generic Name Dose Route Start Last Admin Trade Name Freq PRN Reason Stop Dose Admin Acetaminophen/Butalbital/Caffeine 1 tab 06/11/22 17:19 06/11/22 17:36 Butalb/Acetamin/Caff 50/325/40 Tablet PO 06/11/22 17:20 1 tab ONCE ONE Administration Ketorolac Tromethamine 15 mg 06/11/22 17:19 06/11/22 17:35 Ketorolac Tromethamine 15 Mg/Ml Vial IM 06/11/22 17:20 15 mg ONCE ONE Administration Ondansetron HCl 4 mg 06/11/22 17:41 06/11/22 17:48 Ondansetron Odt 4 Mg Tab.Rapdis TRANSLINGU 06/11/22 17:42 4 mg ONCE ONE Administration <AUSTIN Parikh - Last Filed: 06/11/22 15:17> Medications Administered Discontinued Medications Generic Name Dose Route Start Last Admin Trade Name Michael PRN Reason Stop Dose Admin Acetaminophen/Butalbital/Caffeine 1 tab 06/11/22 17:19 06/11/22 17:36 Butalb/Acetamin/Caff 50/325/40 Tablet PO 06/11/22 17:20 1 tab ONCE ONE Administration Ketorolac Tromethamine 15 mg 06/11/22 17:19 06/11/22 17:35 Ketorolac Tromethamine 15 Mg/Ml Vial IM 06/11/22 17:20 15 mg ONCE ONE Administration Ondansetron HCl 4 mg 06/11/22 17:41 06/11/22 17:48 Ondansetron Odt 4 Mg Tab.Terrance TRANSLINGU 06/11/22 17:42 4 mg ONCE ONE Administration <AUSTIN Salguero - Last Filed: 06/13/22 06:57> Medical Decision Making Medical Decision Making MDM Narrative: Patient is a 22 year old assigned female at with a history of ovarian cysts presenting to the emergency department today with intermittent lower abdominal pain and a migraine. Patient's physical exam was unremarkable. Patient's blood work showed a slightly elevated bilirubin however, the patient's clinical presentation is not consistent with a biliary process. Patient's WBC count was slightly elevated however, I believe this to be secondary to a stress reaction or viral process. Patient's urine showed no acute process. I explained my physical exam findings as well as all test results to the patient. I answered all questions asked by the patient. I stressed the importance of the patient taking her medication as prescribed. I stressed the importance of the patient following up with her primary care provider. I stressed the importance of the patient returning to the emergency department immediately if her symptoms were to worsen or if she were to develop any dizziness, shortness of breath, difficulty breathing, chest pain, blurry vision, loss of vision, nausea, vomiting, abdominal pain, fever, chills, back pain, or any other complaints. Patient verbalized agreement and understanding with this treatment plan and discharge. <AUSTIN Salguero - Last Filed: 06/13/22 06:57> Differential Diagnosis Differential Diagnoses: The differential diagnosis associated with the presentation includes <AUSTIN Salguero - Last Filed: 06/13/22 06:57> migraine <AUSTIN Salguero - Last Filed: 06/13/22 06:57> Lab Data MDM Lab Attestation statement: I reviewed the patient's lab results. <AUSTIN Salguero - Last Filed: 06/13/22 06:57> Result Diagrams: 06/11/22 16:01 06/11/22 16:01 <UASTIN Parikh - Last Filed: 06/11/22 15:17> Labs: Lab Results 06/11/22 06/11/22 06/11/22 Range/Units 16:01 16:01 17:43 WBC 13.2 H (4.8-10.8) X10*3/uL RBC 4.44 (4.20-5.50) X10*6/uL Hgb 13.5 (12.0-16.0) g/dl Hct 40.3 (37.0-47.0) % MCV 90.8 (80.0-98.0) fL MCH 30.4 (27.0-33.0) pg MCHC 33.5 (31.0-35.0) g/dl RDW 11.9 (11.0-16.0) % Plt Count 268 (160-400) X10*3/uL MPV 8.9 L (9.4-12.3) fL Immature Gran % (Auto) 0.3 (0.0-0.4) % Neut % (Auto) 87.9 H (45-73) % Lymph % (Auto) 6.8 L (20-40) % [place] % (Auto) 4.7 (2-11) % Eos % (Auto) 0.1 (0-4) % Baso % (Auto) 0.2 (0-2) % Lymph # (Auto) 0.9 L (1.2-4.9) X10*3/uL [place] # (Auto) 0.6 (0.1-1.2) X10*3/uL Eos # (Auto) 0.0 (0.0-0.4) X10*3/uL Baso # (Auto) 0.0 (0.0-0.2) X10*3/uL Abs Immat Gran (auto) 0.04 H (0.00-0.03) X10*3/uL Absolute Neuts (auto) 11.6 H (2.0-8.3) x10*3/uL Absolute Nucleated RBC 0.000 (0.0-0.012) X10*3/uL Nucleated RBC % (auto) 0.0 (0.0-0.2) /100WBC Sodium 138 (135-145) mmol/L Potassium 4.5 (3.3-5.1) mmol/L Chloride 108 (96-108) mmol/L Carbon Dioxide 24 (22-29) mmol/L Anion Gap 11 L (12-20) BUN 13 (9-16) mg/dL Creatinine 0.75 (0.5-1.4) mg/dL Estim Creat Clear Calc 96.8 Estimated GFR > 60 Random Glucose 87 (60-115) mg/dL Calcium 9.4 (8.4-10.2) mg/dL Magnesium 1.8 (1.6-2.6) mg/dL Total Bilirubin 1.4 H (0.0-1.0) mg/dL AST 23 (5-31) U/L ALT 24 (0-31) U/L Alkaline Phosphatase 53 (39-117) U/L Total Protein 7.8 (6.5-8.0) g/dL Albumin 4.5 (3.5-5.0) g/dL Lipase 12 (8-78) U/L Beta HCG, Quant < 2 mIU/mL Urine Color Yellow Urine Appearance Cloudy Urine pH 6.5 (5.0-9.0) Ur Specific [place] 1.025 (1.005-1.025) Urine Protein Negative (Neg-Trace) mg/dL Urine Glucose (UA) Negative (Negative) mg/dL Urine Ketones Trace (Negative) mg/dL Urine Blood Negative (Negative) Urine Nitrite Negative (Negative) Ur Leukocyte Esterase Small (1+) H (Negative) Urine RBC 0-2 (0-2) /HPF Urine WBC 0-5 (0-5) /HPF Ur Squamous Epith Cells >20 (0-2) /HPF Urine Bacteria 3+ (None Seen) Hyaline Casts 0-2 (0-2) /LPF <AUSTIN Parikh - Last Filed: 06/11/22 15:17> Lab Results 06/11/22 06/11/22 06/11/22 Range/Units 16:01 16:01 17:43 WBC 13.2 H (4.8-10.8) X10*3/uL RBC 4.44 (4.20-5.50) X10*6/uL Hgb 13.5 (12.0-16.0) g/dl Hct 40.3 (37.0-47.0) % MCV 90.8 (80.0-98.0) fL MCH 30.4 (27.0-33.0) pg MCHC 33.5 (31.0-35.0) g/dl RDW 11.9 (11.0-16.0) % Plt Count 268 (160-400) X10*3/uL MPV 8.9 L (9.4-12.3) fL Immature Gran % (Auto) 0.3 (0.0-0.4) % Neut % (Auto) 87.9 H (45-73) % Lymph % (Auto) 6.8 L (20-40) % [place] % (Auto) 4.7 (2-11) % Eos % (Auto) 0.1 (0-4) % Baso % (Auto) 0.2 (0-2) % Lymph # (Auto) 0.9 L (1.2-4.9) X10*3/uL [place] # (Auto) 0.6 (0.1-1.2) X10*3/uL Eos # (Auto) 0.0 (0.0-0.4) X10*3/uL Baso # (Auto) 0.0 (0.0-0.2) X10*3/uL Abs Immat Gran (auto) 0.04 H (0.00-0.03) X10*3/uL Absolute Neuts (auto) 11.6 H (2.0-8.3) x10*3/uL Absolute Nucleated RBC 0.000 (0.0-0.012) X10*3/uL Nucleated RBC % (auto) 0.0 (0.0-0.2) /100WBC Sodium 138 (135-145) mmol/L Potassium 4.5 (3.3-5.1) mmol/L Chloride 108 (96-108) mmol/L Carbon Dioxide 24 (22-29) mmol/L Anion Gap 11 L (12-20) BUN 13 (9-16) mg/dL Creatinine 0.75 (0.5-1.4) mg/dL Estim Creat Clear Calc 96.8 Estimated GFR > 60 Random Glucose 87 (60-115) mg/dL Calcium 9.4 (8.4-10.2) mg/dL Magnesium 1.8 (1.6-2.6) mg/dL Total Bilirubin 1.4 H (0.0-1.0) mg/dL AST 23 (5-31) U/L ALT 24 (0-31) U/L Alkaline Phosphatase 53 (39-117) U/L Total Protein 7.8 (6.5-8.0) g/dL Albumin 4.5 (3.5-5.0) g/dL Lipase 12 (8-78) U/L Beta HCG, Quant < 2 mIU/mL Urine Color Yellow Urine Appearance Cloudy Urine pH 6.5 (5.0-9.0) Ur Specific [place] 1.025 (1.005-1.025) Urine Protein Negative (Neg-Trace) mg/dL Urine Glucose (UA) Negative (Negative) mg/dL Urine Ketones Trace (Negative) mg/dL Urine Blood Negative (Negative) Urine Nitrite Negative (Negative) Ur Leukocyte Esterase Small (1+) H (Negative) Urine RBC 0-2 (0-2) /HPF Urine WBC 0-5 (0-5) /HPF Ur Squamous Epith Cells >20 (0-2) /HPF Urine Bacteria 3+ (None Seen) Hyaline Casts 0-2 (0-2) /LPF <AUSTIN Salguero - Last Filed: 06/13/22 06:57> Discharge Plan Discharge Clinical Impression: Migraine <AUSTIN Parikh - Last Filed: 06/11/22 15:17> Patient Disposition: Home, Self-Care <AUSTIN Parikh - Last Filed: 06/11/22 15:17> Instructions: Migraine Headache (ED) <AUSTIN Parikh - Last Filed: 06/11/22 15:17> Additional Instructions: Follow up with your primary care provider. Return to the emergency department immediately if your symptoms worsen or if you develop any dizziness, shortness of breath, difficulty breathing, chest pain, blurry vision, loss of vision, nausea, vomiting, abdominal pain, fever, chills, back pain, or any other complaints. <AUSTIN Parikh - Last Filed: 06/11/22 15:17> Prescriptions: New ondansetron 4 mg tablet,disintegrating 4 mg PO Q8H 3 Days Qty: 9 0RF No Action phenazopyridine [Pyridium] 200 mg tablet 200 mg PO TID Qty: 6 0RF doxycycline hyclate 100 mg tablet 100 mg PO BID 7 Days Qty: 14 0RF nitrofurantoin monohyd/m-cryst [Macrobid] 100 mg capsule 100 mg PO Q12H 3 Days Qty: 6 0RF Rx Instructions: must administer with a meal/food <AUSTIN Parikh - Last Filed: 06/11/22 15:17> Referrals: [facility] [place] [Provider Group] (Call to establish and follow up with a primary care provider. If you already have a primary care provider, please follow up with them. ) [facility] [place] Primary Care, Sophie [Provider Group] (Call to establish and follow up with a primary care provider. If you already have a primary care provider, please follow up with them. ) [facility] [place] Primary Care,Hardeep [Provider Group] (Call to establish and follow up with a primary care provider. If you already have a primary care provider, please follow up with them. ) <AUSTIN Parikh - Last Filed: 06/11/22 15:17> Stand Alone Forms: Work/School Release <AUSTIN Parikh - Last Filed: 06/11/22 15:17> Interventions: ED Discharge Assessment Last Done: 06/11/22 18:40 <AUSTIN Parikh Last Filed: 06/11/22 15:17> Discharge Date/Time: 06/11/22 18:42 <AUSTIN Parikh - Last Filed: 06/11/22 15:17> Print Language: French <AUSTIN Parikh - Last Filed: 06/11/22 15:17>
[2022-06-11 16:07] LABS: MANUAL DIFF FLAG NO
[2022-06-11 16:20] LABS: Basophils Percent Auto 0.2 % (0-2); Eosinophils Percent Auto 0.1 % (0-4); Hematocrit 40.3 % (37.0-47.0); Hemoglobin 13.5 g/dl (12.0-16.0); Imm Gran Abs Auto 0.04 X10*3/uL (0.00-0.03); Imm Gran Pct Auto 0.3 % (0.0-0.4); Lymphocytes Absolute Auto 0.9 X10*3/uL (1.2-4.9); Lymphocytes Percent Auto 6.8 % (20-40); Mean Corpuscular HGB Conc 33.5 g/dl (31.0-35.0); Mean Corpuscular Hemoglobin 30.4 pg (27.0-33.0); Mean Corpuscular Volume 90.8 fL (80.0-98.0); Mean Platelet Volume 8.9 fL (9.4-12.3); Monocytes Absolute Auto 0.6 X10*3/uL (0.1-1.2); Monocytes Percent Auto 4.7 % (2-11); Neutrophils Absolute Auto 11.6 x10*3/uL (2.0-8.3); Neutrophils Percent Auto 87.9 % (45-73); Platelet Count 268 X10*3/uL (160-400); Red Blood Count 4.44 X10*6/uL (4.20-5.50); Red Cell Distribution Width 11.9 % (11.0-16.0); White Blood Count 13.2 X10*3/uL (4.8-10.8)
[2022-06-11 17:01] LABS: Alanine Aminotransferase 24 U/L (0-31); Albumin Level 4.5 g/dL (3.5-5.0); Alkaline Phosphatase 53 U/L (39-117); Anion Gap 11 (12-20); Aspartate Amino Transferase 23 U/L (5-31); Bilirubin Total 1.4 mg/dL (0.0-1.0); Blood Urea Nitrogen 13 mg/dL (9-16); Calcium 9.4 mg/dL (8.4-10.2); Carbon Dioxide 24 mmol/L (22-29); Chloride 108 mmol/L (96-108); Creatinine Clr Calc Pharmacy 96.8; Estimated Glomerular Filt Rate > 60; Glucose Random 87 mg/dL (60-115); HCG Quantitative < 2 mIU/mL; Lipase 12 U/L (8-78); Magnesium 1.8 mg/dL (1.6-2.6); Potassium 4.5 mmol/L (3.3-5.1); Sodium 138 mmol/L (135-145); Total Protein 7.8 g/dL (6.5-8.0)
[2022-06-11] MEDS: Ketorolac Tromethamine 15 MG/ML VIAL IM (17:35)
[2022-06-11] MEDS: Butalb/Acetamin/Caff 50/325/40 TABLET 1 TAB PO (17:36)
[2022-06-11] MEDS: Ondansetron ODT 4 MG TAB.RAPDIS TRANSLINGU (17:48)
[2022-06-11 18:00] LABS: Appearance Urine Cloudy; Color Urine Yellow; Glucose Urine UA Negative (Negative); Leukocyte Esterase Urine Small (1+) (Negative); Nitrite Urine Negative (Negative); PH 6.5 (5.0-9.0); Specific Gravity - Urine 1.025 (1.005-1.025); UMIC TRIGGER UACC YES; Urine Blood Negative (Negative); Urine Ketones Trace mg/dL (Negative); Urine Protein Negative (Neg-Trace)
[2022-06-11 18:11] LABS: Bacteria Urine 3+ (None Seen); Hyaline Casts Urine 0-2 /LPF (0-2); RBC Urine 0-2 /HPF (0-2); Squamous Epithelial Cell Urine >20 /HPF (0-2); UACC Culture Trigger YES; WBC Urine 0-5 /HPF (0-5)
== END 2022-06-11 18:42 | disposition home or self-care (01) ==
PROVIDERS: Physician Assistant; Emergency Provider Student in an Organized Health Care Education/Training Program
DX: G43.909 Migraine, unspecified, not intractable, without status migrainosus (principal); Z79.899 Other long term (current) drug therapy
CPT/HCPCS: 36415; 80053; 81001; 83690; 83735; 84702; 85025; 87086; 96372; 99283; 99284; J1885